=== PATIENT | female | born 1950 | race Caucasian/White ===

== ENCOUNTER 2017-10-23 09:48 | Inpatient (IN) | payer MEDICARE, MEDICAID ==
[~2017-10-23] VITALS: Ht 144.8 cm; Wt 70.0 kg
[~2017-10-23 09:48] MED LIST: ALBU18HF2 IH; ATOR40TA PO; BECL8.7A5 IH; FENO160T4 PO; FURO40TA4 PO; LORA10TA7 PO; NAPR500T6 PO; NITR0.4T51 SL; POTA20TA19 PO; PRED10TA PO; ZES10T PO; ZOL50T PO
[2017-10-23] MEDS ORDERED: methylPREDNISolone sod succ 125mg/2ml vial IV ONE (10:40)
[2017-10-23] MEDS ORDERED: ipratropium/albuterol 3ml nebule NEB ONE (10:40)
[2017-10-23 11:01] LABS: BASOPHILS % (AUTO) 0.4 % (0-1); EOSINOPHILS # (AUTO) 0.1 X10'3 (0-0.9); EOSINOPHILS % (AUTO) 1.4 % (0-6); HEMATOCRIT 39.5 % (35.0-45.0); HEMOGLOBIN 13.3 g/dl (12.0-16.0); LYMPHOCYTES # (AUTO) 2.3 X10'3 (1.1-4.8); LYMPHOCYTES % (AUTO) 35.2 % (21-51); MEAN CORPUSCULAR HEMOGLOBIN 34.8 PG (27.0-31.0); MEAN CORPUSCULAR HGB CONC 33.6 % (33.0-36.5); MEAN CORPUSCULAR VOLUME 103.6 FL (78-98); MEAN PLATELET VOLUME 7.8 FL (7.4-10.4); MONOCYTES # (AUTO) 0.6 X10'3 (0-0.9); MONOCYTES % (AUTO) 8.4 % (2-12); NEUTROPHILS # (AUTO) 3.6 X10'3 (1.8-7.7); NEUTROPHILS % (AUTO) 54.6 % (42-75); PLATELET COUNT 264 X10'3 (140-440); RED BLOOD COUNT 3.81 X10'6 (4.20-5.60); RED CELL DISTRIBUTION WIDTH 15.1 % (11.5-14.5); WHITE BLOOD COUNT 6.7 X10'3 (4.5-11.0)
[2017-10-23 11:19] LABS: ALANINE AMINOTRANSFERASE 26 U/L (12-78); ALBUMIN 3.7 G/DL (3.4-5.0); ALBUMIN/GLOBULIN RATIO 0.9 (1.1-1.5); ALKALINE PHOSPHATASE 71 IU/L (46-116); ANION GAP 10 (8-16); ASPARTATE AMINO TRANSFERASE 27 U/L (10-37); BILIRUBIN,TOTAL 0.7 MG/DL (0.1-1.0); BLOOD UREA NITROGEN 26 MG/DL (7-18); BUN/CREATININE RATIO 19.4 (6.6-38.0); CALCIUM 9.3 MG/DL (8.5-10.1); CHLORIDE 106 MMOL/L (99-107); CREATININE 1.34 MG/DL (0.40-0.90); GLUCOSE 108 MG/DL (70-104); SODIUM 145 MMOL/L (135-145); TOTAL PROTEIN 7.9 G/DL (6.4-8.2); eGFR 39 ML/MIN
[2017-10-23] MEDS ORDERED: potassium Cl oral solution 20 MEQ/15 ML PO ONE (11:25)
[2017-10-23 11:26] LABS: ABG BASE EXCESS 1.7 mmol/L (-2.0-3.0); ABG HCO3 25.4 mmol/L (22.0-26.0); ABG OXYGEN SATURATION 89.5 % (95-98); ABG PCO2 (T) 37.1 mmHg (32.0-45.0); ABG PH (T) 7.453 (7.350-7.450); ABG PO2 (T) 54.5 mmHg (83-108); ALLEN'S TEST Positive; FCOHb 1.2 % (0.5-1.5); FMetHb 0.1 % (0.3-1.12); FO2Hb 88.3 % (94-100); TOTAL HEMOGLOBIN 14.1 G/dl (12.0-16.0)
[2017-10-23] MEDS ORDERED: aspirin 81mg tab.chew PO ONE (11:35)
[2017-10-23] MEDS ORDERED: mag hydrox/Alum hydrox/simeth 30ml oral suspension PO PRN (11:45)
[2017-10-23] MEDS ORDERED: ipratropium/albuterol 3ml nebule NEB PRN (11:45)
[2017-10-23] MEDS: K and/or MAG REPLACEMENT MC SCH (11:45)
[2017-10-23] MEDS ORDERED: magnesium hydroxide 30ml (MOM) UD suspension PO PRN (11:45)
[2017-10-23] MEDS ORDERED: magnesium 4gm in 100ml NS 100 ML IV PRN (11:45)
[2017-10-23] MEDS ORDERED: potassium Cl 20 mEq SR tablet PO PRN ×2 (11:45)
[2017-10-23] MEDS ORDERED: furosemide 10 MG/1 ML 10ml inj IV ONE (11:45)
[2017-10-23] MEDS ORDERED: ondansetron/PF 4mg/2ml inj IV PRN (11:45)
[2017-10-23] MEDS ORDERED: magnesium Cl slow-release 64mg tablet PO PRN (11:45)
[2017-10-23] MEDS ORDERED: acetaminophen 325mg tablet PO PRN (11:45)
[2017-10-23] MEDS ORDERED: furosemide 40mg/4ml inj IV SCH (11:45)
[2017-10-23] MEDS ORDERED: magnesium 2GM in 50ml NS 50 ML IV PRN (11:45)
[2017-10-23] MEDS ORDERED: potassium Cl 40MEQ/NS 500ml 500 ML IV PRN ×2 (11:45)
[2017-10-23 12:47] LABS: HEMOGLOBIN A1C 6.9 % (4.5-6.2)
[2017-10-23 18:30] VITALS: BP 144/68
[2017-10-23] MEDS ORDERED: nitroGLYCERIN 0.4mg SUBLingual tab SL PRN (18:40)
[2017-10-23] MEDS ORDERED: potassium Cl oral solution 20 MEQ/15 ML PO PRN ×2 (18:50→18:51)
[2017-10-23] MEDS ORDERED: CLON0.1T20 (19:04)
[2017-10-23] MEDS ORDERED: MONT10TA24 (19:04)
[2017-10-23] MEDS ORDERED: METO-395 (19:04)
[2017-10-23] MEDS: carVEDilol 3.125mg tablet PO SCH (19:21)
[2017-10-23] MEDS: methylPREDNISolone sod succ/PF 40mg inj. IV SCH (19:21)
[2017-10-23] MEDS: potassium Cl oral solution 20 MEQ/15 ML PO SCH (19:22)
[2017-10-23] MEDS: ipratropium/albuterol 3ml nebule NEB SCH ×2 (19:39→22:45)
[2017-10-23] MEDS ORDERED: temazepam 15mg capsule PO PRN (21:00)
[2017-10-23] MEDS ORDERED: non-formulary drug (Atorvastatin Calcium* (Lipitor*) 1 TAB) PO SCH (21:00)
[2017-10-23] MEDS: atorvastatin 20mg tablet PO SCH (21:04)
[2017-10-23 22:00] VITALS: BP 149/84
[2017-10-24 02:00] VITALS: BP 117/65
[2017-10-24] MEDS: methylPREDNISolone sod succ/PF 40mg inj. IV SCH ×4 (02:23→20:51)
[2017-10-24 05:49] LABS: BASOPHILS % (AUTO) 0.3 % (0-1); EOSINOPHILS % (AUTO) 0.8 % (0-6); HEMOGLOBIN 13.2 g/dl (12.0-16.0); LYMPHOCYTES # (AUTO) 0.7 X10'3 (1.1-4.8); LYMPHOCYTES % (AUTO) 10.3 % (21-51); MEAN CORPUSCULAR HEMOGLOBIN 34.9 PG (27.0-31.0); MEAN CORPUSCULAR HGB CONC 33.8 % (33.0-36.5); MEAN CORPUSCULAR VOLUME 103.5 FL (78-98); MEAN PLATELET VOLUME 7.9 FL (7.4-10.4); MONOCYTES # (AUTO) 0.2 X10'3 (0-0.9); MONOCYTES % (AUTO) 2.8 % (2-12); NEUTROPHILS # (AUTO) 5.5 X10'3 (1.8-7.7); NEUTROPHILS % (AUTO) 85.8 % (42-75); PLATELET COUNT 262 X10'3 (140-440); RED BLOOD COUNT 3.77 X10'6 (4.20-5.60); RED CELL DISTRIBUTION WIDTH 14.6 % (11.5-14.5); WHITE BLOOD COUNT 6.5 X10'3 (4.5-11.0)
[2017-10-24 06:30] VITALS: BP 132/76
[2017-10-24 06:30] LABS: ALANINE AMINOTRANSFERASE 29 U/L (12-78); ALBUMIN 3.5 G/DL (3.4-5.0); ALBUMIN/GLOBULIN RATIO 0.8 (1.1-1.5); ALKALINE PHOSPHATASE 71 IU/L (46-116); ANION GAP 9 (8-16); ASPARTATE AMINO TRANSFERASE 28 U/L (10-37); BILIRUBIN,TOTAL 0.5 MG/DL (0.1-1.0); BLOOD UREA NITROGEN 25 MG/DL (7-18); BUN/CREATININE RATIO 18.8 (6.6-38.0); CALCIUM 9.4 MG/DL (8.5-10.1); CHLORIDE 103 MMOL/L (99-107); CHOL/HDL RATIO 7.7 (0.00-4.99); CHOLESTEROL 199 MG/DL (0-200); CREATININE 1.33 MG/DL (0.40-0.90); GLUCOSE 171 MG/DL (70-104); HDL CHOLESTEROL 26 MG/DL (35-60); LDL CHOLESTEROL 138 MG/DL (50-100); MAGNESIUM 1.8 MG/DL (1.5-2.4); PHOSPHORUS 3.1 MG/DL (2.3-4.5); SODIUM 143 MMOL/L (135-145); TOTAL CARBON DIOXIDE 30.6 MMOL/L (24-32); TOTAL PROTEIN 7.7 G/DL (6.4-8.2); TRIGLYCERIDES 200 MG/DL (20-135); eGFR 40 ML/MIN
[2017-10-24 06:39] LABS: POTASSIUM 4.1 MMOL/L (3.5-5.1)
[2017-10-24] MEDS: ipratropium/albuterol 3ml nebule NEB SCH ×5 (06:46→23:00)
[2017-10-24] MEDS: K and/or MAG REPLACEMENT MC SCH (07:50)
[2017-10-24] MEDS: furosemide 40mg/4ml inj IV SCH ×2 (08:00→20:49)
[2017-10-24] MEDS ORDERED: FENOFIBRATE 160 MG PO SCH (08:00)
[2017-10-24] MEDS: potassium Cl oral solution 20 MEQ/15 ML PO SCH ×2 (08:00→20:00)
[2017-10-24] MEDS: lisinopril 10 MG tablet PO SCH (08:00)
[2017-10-24] MEDS: carVEDilol 3.125mg tablet PO SCH ×2 (08:01→20:00)
[2017-10-24] MEDS: sertraline 50mg tablet PO SCH (08:02)
[2017-10-24] MEDS: fenofibrate 145mg tablet PO SCH (08:02)
[2017-10-24] MEDS: enoxaparin 40mg/0.4ml syringe SUBCUT SCH (08:03)
[2017-10-24 11:00] VITALS: BP 122/59
[2017-10-24 15:00] VITALS: BP 116/63
[2017-10-24] MEDS ORDERED: HYDROcodone/acetaminophen 5mg/325mg tablet PO PRN (16:40)
[2017-10-24 19:00] VITALS: BP 121/57
[2017-10-24] MEDS: atorvastatin 20mg tablet PO SCH (20:50)
[2017-10-24] MEDS ORDERED: dextrose ORAL solution 15 GM/59 ML bottle PO PRN ×2 (22:25)
[2017-10-24] MEDS ORDERED: glucagon, human recombinant 1mg kit SUBCUT PRN (22:25)
[2017-10-24] MEDS ORDERED: dextrose 50%-water 50ml dispensing syringe IV PRN ×2 (22:25)
[2017-10-24] MEDS ORDERED: MESSAGE TO PHARMACY PO ONE (22:25)
[2017-10-24] MEDS: insulin glargine (Lantus) pen - multi-dose SQ SCH (22:31)
[2017-10-24 23:00] VITALS: BP 123/72
[2017-10-25] MEDS: methylPREDNISolone sod succ/PF 40mg inj. IV SCH ×4 (02:35→22:08)
[2017-10-25 03:00] VITALS: BP 132/78
[2017-10-25 05:36] LABS: BASOPHILS % (AUTO) 0.1 % (0-1); EOSINOPHILS # (AUTO) 0.1 X10'3 (0-0.9); EOSINOPHILS % (AUTO) 1.4 % (0-6); HEMATOCRIT 39.9 % (35.0-45.0); HEMOGLOBIN 13.7 g/dl (12.0-16.0); LYMPHOCYTES # (AUTO) 0.9 X10'3 (1.1-4.8); LYMPHOCYTES % (AUTO) 9.7 % (21-51); MEAN CORPUSCULAR HEMOGLOBIN 35.1 PG (27.0-31.0); MEAN CORPUSCULAR HGB CONC 34.3 % (33.0-36.5); MEAN CORPUSCULAR VOLUME 102.2 FL (78-98); MEAN PLATELET VOLUME 7.9 FL (7.4-10.4); MONOCYTES # (AUTO) 0.2 X10'3 (0-0.9); MONOCYTES % (AUTO) 2.5 % (2-12); NEUTROPHILS # (AUTO) 8.3 X10'3 (1.8-7.7); NEUTROPHILS % (AUTO) 86.3 % (42-75); PLATELET COUNT 279 X10'3 (140-440); RED BLOOD COUNT 3.91 X10'6 (4.20-5.60); WHITE BLOOD COUNT 9.6 X10'3 (4.5-11.0)
[2017-10-25 06:15] LABS: ALANINE AMINOTRANSFERASE 25 U/L (12-78); ALBUMIN 3.6 G/DL (3.4-5.0); ALBUMIN/GLOBULIN RATIO 0.9 (1.1-1.5); ALKALINE PHOSPHATASE 64 IU/L (46-116); ANION GAP 13 (8-16); ASPARTATE AMINO TRANSFERASE 18 U/L (10-37); BILIRUBIN,TOTAL 0.6 MG/DL (0.1-1.0); BLOOD UREA NITROGEN 38 MG/DL (7-18); BUN/CREATININE RATIO 24.7 (6.6-38.0); CALCIUM 9.6 MG/DL (8.5-10.1); CHLORIDE 103 MMOL/L (99-107); CREATININE 1.54 MG/DL (0.40-0.90); GLUCOSE 161 MG/DL (70-104); MAGNESIUM 1.8 MG/DL (1.5-2.4); PHOSPHORUS 4.9 MG/DL (2.3-4.5); POTASSIUM 3.7 MMOL/L (3.5-5.1); SODIUM 145 MMOL/L (135-145); TOTAL CARBON DIOXIDE 28.9 MMOL/L (24-32); TOTAL PROTEIN 7.8 G/DL (6.4-8.2); eGFR 34 ML/MIN
[2017-10-25] MEDS: ipratropium/albuterol 3ml nebule NEB SCH ×5 (06:40→23:01)
[2017-10-25 06:46] VITALS: BP 140/87
[2017-10-25] MEDS: potassium Cl oral solution 20 MEQ/15 ML PO SCH ×2 (08:00→20:00)
[2017-10-25] MEDS: K and/or MAG REPLACEMENT MC SCH (08:00)
[2017-10-25] MEDS: sertraline 50mg tablet PO SCH (09:09)
[2017-10-25] MEDS: fenofibrate 145mg tablet PO SCH (09:09)
[2017-10-25] MEDS: enoxaparin 40mg/0.4ml syringe SUBCUT SCH (09:09)
[2017-10-25] MEDS: lisinopril 10 MG tablet PO SCH (09:10)
[2017-10-25] MEDS: carVEDilol 3.125mg tablet PO SCH ×2 (09:10→22:01)
[2017-10-25] MEDS: furosemide 40mg/4ml inj IV SCH ×2 (09:10→22:03)
[2017-10-25 11:00] VITALS: BP 129/72
[2017-10-25] MEDS: insulin Lispro (HumaLOG) vial - multi-dose SQ SCH (13:15)
[2017-10-25 15:00] VITALS: BP 121/78
[2017-10-25 19:00] VITALS: BP 122/77
[2017-10-25] MEDS: atorvastatin 20mg tablet PO SCH (21:56)
[2017-10-25] MEDS: insulin glargine (Lantus) pen - multi-dose SQ SCH (22:00)
[2017-10-25 23:00] VITALS: BP 134/77
[2017-10-26] MEDS: methylPREDNISolone sod succ/PF 40mg inj. IV SCH ×3 (02:21→13:23)
[2017-10-26 03:00] VITALS: BP 122/78
[2017-10-26 06:00] VITALS: BP 126/69
[2017-10-26 06:08] LABS: BASOPHILS % (AUTO) 0 % (0-1); EOSINOPHILS # (AUTO) 0.1 X10'3 (0-0.9); EOSINOPHILS % (AUTO) 1.5 % (0-6); HEMATOCRIT 40.7 % (35.0-45.0); HEMOGLOBIN 13.6 g/dl (12.0-16.0); LYMPHOCYTES # (AUTO) 0.9 X10'3 (1.1-4.8); LYMPHOCYTES % (AUTO) 11.3 % (21-51); MEAN CORPUSCULAR HEMOGLOBIN 34.5 PG (27.0-31.0); MEAN CORPUSCULAR HGB CONC 33.4 % (33.0-36.5); MEAN CORPUSCULAR VOLUME 103.3 FL (78-98); MEAN PLATELET VOLUME 7.9 FL (7.4-10.4); MONOCYTES # (AUTO) 0.2 X10'3 (0-0.9); MONOCYTES % (AUTO) 2.8 % (2-12); NEUTROPHILS # (AUTO) 6.6 X10'3 (1.8-7.7); NEUTROPHILS % (AUTO) 84.4 % (42-75); PLATELET COUNT 299 X10'3 (140-440); RED BLOOD COUNT 3.94 X10'6 (4.20-5.60); RED CELL DISTRIBUTION WIDTH 15.5 % (11.5-14.5); WHITE BLOOD COUNT 7.8 X10'3 (4.5-11.0)
[2017-10-26 07:03] LABS: ALANINE AMINOTRANSFERASE 27 U/L (12-78); ALBUMIN 3.6 G/DL (3.4-5.0); ALBUMIN/GLOBULIN RATIO 0.9 (1.1-1.5); ALKALINE PHOSPHATASE 62 IU/L (46-116); ANION GAP 8 (8-16); ASPARTATE AMINO TRANSFERASE 20 U/L (10-37); BILIRUBIN,TOTAL 0.5 MG/DL (0.1-1.0); BLOOD UREA NITROGEN 45 MG/DL (7-18); BUN/CREATININE RATIO 27.3 (6.6-38.0); CALCIUM 9.5 MG/DL (8.5-10.1); CHLORIDE 103 MMOL/L (99-107); CREATININE 1.65 MG/DL (0.40-0.90); GLUCOSE 169 MG/DL (70-104); PHOSPHORUS 5.8 MG/DL (2.3-4.5); POTASSIUM 3.7 MMOL/L (3.5-5.1); SODIUM 147 MMOL/L (135-145); TOTAL CARBON DIOXIDE 36.1 MMOL/L (24-32); TOTAL PROTEIN 7.6 G/DL (6.4-8.2); eGFR 31 ML/MIN
[2017-10-26] MEDS: ipratropium/albuterol 3ml nebule NEB SCH ×5 (07:15→23:02)
[2017-10-26] MEDS: potassium Cl oral solution 20 MEQ/15 ML PO SCH ×2 (08:00→20:00)
[2017-10-26] MEDS: carVEDilol 3.125mg tablet PO SCH ×2 (08:23→20:44)
[2017-10-26] MEDS: lisinopril 10 MG tablet PO SCH (08:23)
[2017-10-26] MEDS: furosemide 40mg/4ml inj IV SCH ×2 (08:24→20:44)
[2017-10-26] MEDS: enoxaparin 30mg/0.3ml syringe SUBCUT SCH (08:24)
[2017-10-26] MEDS: sertraline 50mg tablet PO SCH (08:24)
[2017-10-26] MEDS: fenofibrate 145mg tablet PO SCH (08:30)
[2017-10-26] MEDS: insulin Lispro (HumaLOG) vial - multi-dose SQ SCH ×2 (08:33→13:28)
[2017-10-26 11:00] VITALS: BP 122/83
[2017-10-26 15:00] VITALS: BP 131/71
[2017-10-26 19:00] VITALS: BP 136/62
[2017-10-26] MEDS: atorvastatin 20mg tablet PO SCH (20:44)
[2017-10-26] MEDS: insulin glargine (Lantus) pen - multi-dose SQ SCH (20:53)
[2017-10-26 23:00] VITALS: BP 121/64
[2017-10-27 03:00] VITALS: BP 136/84
[2017-10-27 05:52] LABS: BASOPHILS % (AUTO) 0.1 % (0-1); EOSINOPHILS % (AUTO) 0 % (0-6); HEMATOCRIT 44.2 % (35.0-45.0); HEMOGLOBIN 14.8 g/dl (12.0-16.0); LYMPHOCYTES # (AUTO) 1.6 X10'3 (1.1-4.8); LYMPHOCYTES % (AUTO) 15.6 % (21-51); MEAN CORPUSCULAR HEMOGLOBIN 34.5 PG (27.0-31.0); MEAN CORPUSCULAR HGB CONC 33.5 % (33.0-36.5); MEAN CORPUSCULAR VOLUME 103.1 FL (78-98); MEAN PLATELET VOLUME 7.8 FL (7.4-10.4); MONOCYTES # (AUTO) 0.8 X10'3 (0-0.9); MONOCYTES % (AUTO) 8.3 % (2-12); NEUTROPHILS # (AUTO) 7.7 X10'3 (1.8-7.7); PLATELET COUNT 307 X10'3 (140-440); RED BLOOD COUNT 4.29 X10'6 (4.20-5.60); RED CELL DISTRIBUTION WIDTH 15.4 % (11.5-14.5); WHITE BLOOD COUNT 10.1 X10'3 (4.5-11.0)
[2017-10-27 06:00] VITALS: BP 136/74
[2017-10-27 06:27] LABS: ALANINE AMINOTRANSFERASE 29 U/L (12-78); ALBUMIN 3.7 G/DL (3.4-5.0); ALBUMIN/GLOBULIN RATIO 0.9 (1.1-1.5); ALKALINE PHOSPHATASE 58 IU/L (46-116); ANION GAP 9 (8-16); ASPARTATE AMINO TRANSFERASE 23 U/L (10-37); BILIRUBIN,TOTAL 0.6 MG/DL (0.1-1.0); BLOOD UREA NITROGEN 56 MG/DL (7-18); BUN/CREATININE RATIO 36.1 (6.6-38.0); CALCIUM 9.6 MG/DL (8.5-10.1); CHLORIDE 103 MMOL/L (99-107); CREATININE 1.55 MG/DL (0.40-0.90); GLUCOSE 130 MG/DL (70-104); MAGNESIUM 2.1 MG/DL (1.5-2.4); PHOSPHORUS 4.8 MG/DL (2.3-4.5); POTASSIUM 3.4 MMOL/L (3.5-5.1); SODIUM 147 MMOL/L (135-145); TOTAL CARBON DIOXIDE 35.1 MMOL/L (24-32); TOTAL PROTEIN 7.7 G/DL (6.4-8.2); eGFR 33 ML/MIN
[2017-10-27] MEDS: potassium Cl oral solution 20 MEQ/15 ML PO SCH ×2 (08:00→20:00)
[2017-10-27] MEDS: enoxaparin 30mg/0.3ml syringe SUBCUT SCH (08:00)
[2017-10-27] MEDS: K and/or MAG REPLACEMENT MC SCH (08:00)
[2017-10-27] MEDS: ipratropium/albuterol 3ml nebule NEB SCH ×5 (08:09→23:14)
[2017-10-27] MEDS: fenofibrate 145mg tablet PO SCH (08:30)
[2017-10-27] MEDS: furosemide 40mg/4ml inj IV SCH (08:30)
[2017-10-27] MEDS: carVEDilol 3.125mg tablet PO SCH ×2 (08:35→20:53)
[2017-10-27] MEDS: prednisone 10mg tablet PO SCH (08:36)
[2017-10-27] MEDS: lisinopril 10 MG tablet PO SCH (08:36)
[2017-10-27] MEDS: sertraline 50mg tablet PO SCH (08:36)
[2017-10-27] MEDS: insulin Lispro (HumaLOG) vial - multi-dose SQ SCH ×2 (08:42→13:31)
[2017-10-27 11:00] VITALS: BP 98/53
[2017-10-27 15:00] VITALS: BP 109/65
[2017-10-27 19:00] VITALS: BP 132/85
[2017-10-27] MEDS: atorvastatin 20mg tablet PO SCH (20:53)
[2017-10-27] MEDS: insulin glargine (Lantus) pen - multi-dose SQ SCH (21:00)
[2017-10-27 23:00] VITALS: BP 120/83
[2017-10-28 06:00] VITALS: BP_SYST 102; BP_SYST 119; BP_DIAS 52; BP_DIAS 65
[2017-10-28 07:15] LABS: BASOPHILS % (AUTO) 0.1 % (0-1); EOSINOPHILS # (AUTO) 0.2 X10'3 (0-0.9); EOSINOPHILS % (AUTO) 1.5 % (0-6); HEMATOCRIT 45.3 % (35.0-45.0); HEMOGLOBIN 15.1 g/dl (12.0-16.0); LYMPHOCYTES # (AUTO) 2.8 X10'3 (1.1-4.8); LYMPHOCYTES % (AUTO) 27.8 % (21-51); MEAN CORPUSCULAR HEMOGLOBIN 34.8 PG (27.0-31.0); MEAN CORPUSCULAR HGB CONC 33.4 % (33.0-36.5); MEAN CORPUSCULAR VOLUME 104.5 FL (78-98); MEAN PLATELET VOLUME 7.8 FL (7.4-10.4); MONOCYTES # (AUTO) 0.9 X10'3 (0-0.9); MONOCYTES % (AUTO) 8.9 % (2-12); NEUTROPHILS # (AUTO) 6.2 X10'3 (1.8-7.7); NEUTROPHILS % (AUTO) 61.7 % (42-75); PLATELET COUNT 295 X10'3 (140-440); RED BLOOD COUNT 4.34 X10'6 (4.20-5.60); RED CELL DISTRIBUTION WIDTH 14.7 % (11.5-14.5); WHITE BLOOD COUNT 10.1 X10'3 (4.5-11.0)
[2017-10-28 07:35] LABS: ALANINE AMINOTRANSFERASE 38 U/L (12-78); ALBUMIN 3.4 G/DL (3.4-5.0); ALBUMIN/GLOBULIN RATIO 0.9 (1.1-1.5); ALKALINE PHOSPHATASE 60 IU/L (46-116); ANION GAP 6 (8-16); ASPARTATE AMINO TRANSFERASE 29 U/L (10-37); BILIRUBIN,TOTAL 0.6 MG/DL (0.1-1.0); BLOOD UREA NITROGEN 54 MG/DL (7-18); BUN/CREATININE RATIO 42.2 (6.6-38.0); CALCIUM 9.2 MG/DL (8.5-10.1); CHLORIDE 104 MMOL/L (99-107); CREATININE 1.28 MG/DL (0.40-0.90); GLUCOSE 80 MG/DL (70-104); MAGNESIUM 2.1 MG/DL (1.5-2.4); PHOSPHORUS 3.7 MG/DL (2.3-4.5); POTASSIUM 3.1 MMOL/L (3.5-5.1); SODIUM 148 MMOL/L (135-145); TOTAL CARBON DIOXIDE 37.7 MMOL/L (24-32); TOTAL PROTEIN 7.3 G/DL (6.4-8.2); eGFR 41 ML/MIN
[2017-10-28] MEDS: lisinopril 10 MG tablet PO SCH (07:46)
[2017-10-28] MEDS: prednisone 10mg tablet PO SCH (07:46)
[2017-10-28] MEDS: carVEDilol 3.125mg tablet PO SCH ×2 (07:46→20:31)
[2017-10-28] MEDS: furosemide 40mg tablet PO SCH (07:46)
[2017-10-28] MEDS: sertraline 50mg tablet PO SCH (07:47)
[2017-10-28] MEDS: fenofibrate 145mg tablet PO SCH (07:47)
[2017-10-28] MEDS: enoxaparin 30mg/0.3ml syringe SUBCUT SCH (07:48)
[2017-10-28] MEDS: potassium Cl oral solution 20 MEQ/15 ML PO SCH ×2 (07:51→20:00)
[2017-10-28] MEDS: K and/or MAG REPLACEMENT MC SCH (07:55)
[2017-10-28] MEDS: insulin Lispro (HumaLOG) vial - multi-dose SQ SCH ×2 (09:10→13:28)
[2017-10-28] MEDS: ipratropium/albuterol 3ml nebule NEB SCH ×5 (09:31→23:27)
[2017-10-28 15:00] VITALS: BP 107/59
[2017-10-28 19:00] VITALS: BP 107/59
[2017-10-28] MEDS: atorvastatin 20mg tablet PO SCH (20:31)
[2017-10-28] MEDS: insulin glargine (Lantus) pen - multi-dose SQ SCH (21:30)
[2017-10-29 03:00] VITALS: BP 118/70
[2017-10-29 06:00] VITALS: BP 102/73
[2017-10-29 06:14] LABS: ALBUMIN 3.3 G/DL (3.4-5.0); ANION GAP 5 (8-16); BLOOD UREA NITROGEN 48 MG/DL (7-18); BUN/CREATININE RATIO 38.1 (6.6-38.0); CALCIUM 9.3 MG/DL (8.5-10.1); CHLORIDE 106 MMOL/L (99-107); CREATININE 1.26 MG/DL (0.40-0.90); GLUCOSE 78 MG/DL (70-104); MAGNESIUM 2.1 MG/DL (1.5-2.4); POTASSIUM 3.4 MMOL/L (3.5-5.1); SODIUM 150 MMOL/L (135-145); TOTAL CARBON DIOXIDE 38.7 MMOL/L (24-32); eGFR 42 ML/MIN
[2017-10-29] MEDS: ipratropium/albuterol 3ml nebule NEB SCH ×5 (07:11→23:27)
[2017-10-29] MEDS: potassium Cl oral solution 20 MEQ/15 ML PO SCH ×2 (08:00→20:48)
[2017-10-29] MEDS: K and/or MAG REPLACEMENT MC SCH (08:00)
[2017-10-29] MEDS: fenofibrate 145mg tablet PO SCH ×2 (09:30→09:42)
[2017-10-29] MEDS: enoxaparin 30mg/0.3ml syringe SUBCUT SCH (09:30)
[2017-10-29] MEDS: sertraline 50mg tablet PO SCH (09:30)
[2017-10-29] MEDS: prednisone 10mg tablet PO SCH (09:31)
[2017-10-29] MEDS: furosemide 40mg tablet PO SCH (09:31)
[2017-10-29] MEDS: carVEDilol 3.125mg tablet PO SCH ×2 (09:31→19:19)
[2017-10-29] MEDS: lisinopril 10 MG tablet PO SCH (09:31)
[2017-10-29 11:00] VITALS: BP 113/54
[2017-10-29 15:00] VITALS: BP 134/71
[2017-10-29 19:00] VITALS: BP 123/73
[2017-10-29] MEDS: insulin Lispro (HumaLOG) vial - multi-dose SQ SCH (19:19)
[2017-10-29] MEDS: atorvastatin 20mg tablet PO SCH (20:48)
[2017-10-29] MEDS: insulin glargine (Lantus) pen - multi-dose SQ SCH (21:09)
[2017-10-29 23:00] VITALS: BP 104/49
[2017-10-30 03:00] VITALS: BP 125/73
[2017-10-30 06:00] VITALS: BP 116/52
[2017-10-30] MEDS: ipratropium/albuterol 3ml nebule NEB SCH ×2 (06:58→11:03)
[2017-10-30] MEDS: carVEDilol 3.125mg tablet PO SCH (07:34)
[2017-10-30] MEDS: sertraline 50mg tablet PO SCH (07:35)
[2017-10-30] MEDS: lisinopril 10 MG tablet PO SCH (07:36)
[2017-10-30] MEDS: furosemide 40mg tablet PO SCH (07:37)
[2017-10-30] MEDS: potassium Cl oral solution 20 MEQ/15 ML PO SCH (07:41)
[2017-10-30] MEDS: enoxaparin 30mg/0.3ml syringe SUBCUT SCH (07:42)
[2017-10-30] MEDS: fenofibrate 145mg tablet PO SCH (07:45)
[2017-10-30] MEDS: K and/or MAG REPLACEMENT MC SCH (08:00)
[2017-10-30] MEDS ORDERED: prednisone 10mg tablet PO SCH (08:30)
[2017-10-30 10:32] LABS: BASOPHILS % (AUTO) 0.1 % (0-1); EOSINOPHILS # (AUTO) 0.2 X10'3 (0-0.9); EOSINOPHILS % (AUTO) 1.6 % (0-6); HEMATOCRIT 46.9 % (35.0-45.0); HEMOGLOBIN 15.8 g/dl (12.0-16.0); LYMPHOCYTES # (AUTO) 1.9 X10'3 (1.1-4.8); LYMPHOCYTES % (AUTO) 16.2 % (21-51); MEAN CORPUSCULAR HEMOGLOBIN 34.7 PG (27.0-31.0); MEAN CORPUSCULAR HGB CONC 33.7 % (33.0-36.5); MEAN CORPUSCULAR VOLUME 102.8 FL (78-98); MEAN PLATELET VOLUME 7.8 FL (7.4-10.4); MONOCYTES # (AUTO) 0.8 X10'3 (0-0.9); MONOCYTES % (AUTO) 7.1 % (2-12); NEUTROPHILS # (AUTO) 8.7 X10'3 (1.8-7.7); PLATELET COUNT 291 X10'3 (140-440); RED BLOOD COUNT 4.57 X10'6 (4.20-5.60); RED CELL DISTRIBUTION WIDTH 14.6 % (11.5-14.5); WHITE BLOOD COUNT 11.5 X10'3 (4.5-11.0)
[2017-10-30 10:42] LABS: ALBUMIN 3.5 G/DL (3.4-5.0); ANION GAP 7 (8-16); BLOOD UREA NITROGEN 38 MG/DL (7-18); BUN/CREATININE RATIO 32.8 (6.6-38.0); CALCIUM 9.3 MG/DL (8.5-10.1); CHLORIDE 104 MMOL/L (99-107); CREATININE 1.16 MG/DL (0.40-0.90); GLUCOSE 111 MG/DL (70-104); POTASSIUM 4.6 MMOL/L (3.5-5.1); SODIUM 145 MMOL/L (135-145); TOTAL CARBON DIOXIDE 33.7 MMOL/L (24-32); eGFR 46 ML/MIN
[2017-10-30 11:00] VITALS: BP 98/62
[2017-10-30] MEDS ORDERED: BECL8.7A7 INH (12:29)
[2017-10-30] MEDS ORDERED: ALBU18HF2 IH (12:29)
[2017-10-30] MEDS ORDERED: METF500T4 PO (12:29)
[2017-10-30] MEDS ORDERED: PRE5T PO (14:02)
[2017-10-30 14:47] VITALS: BP 102/42
== END 2017-10-30 14:55 | disposition home or self-care (01) | DRG 280 ==
LOC: ER 09:48 → ED HOLD 11:42 → EDBEDREQ 16:48 → PCU 3S 17:32
PROVIDERS: ADMIT Family Medicine; ATTEND Internal Medicine
DX: I13.0 Hypertensive heart and chronic kidney disease with heart failure and stage 1 through stage 4 chronic kidney disease, or unspecified chronic kidney disease (principal); I50.23 Acute on chronic systolic (congestive) heart failure; I21.A1 Myocardial infarction type 2; J96.21 Acute and chronic respiratory failure with hypoxia; J44.1 Chronic obstructive pulmonary disease with (acute) exacerbation; J94.2 Hemothorax; N17.9 Acute kidney failure, unspecified; F32.9 Major depressive disorder, single episode, unspecified; I25.10 Atherosclerotic heart disease of native coronary artery without angina pectoris; B95.62 Methicillin resistant Staphylococcus aureus infection as the cause of diseases classified elsewhere; E78.5 Hyperlipidemia, unspecified; Z99.81 Dependence on supplemental oxygen; E03.9 Hypothyroidism, unspecified; E11.22 Type 2 diabetes mellitus with diabetic chronic kidney disease; E66.01 Morbid (severe) obesity due to excess calories; E78.00 Pure hypercholesterolemia, unspecified; E87.6 Hypokalemia; G47.30 Sleep apnea, unspecified; I44.7 Left bundle-branch block, unspecified; N18.3 Chronic kidney disease, stage 3 (moderate); Z59.0 Homelessness; Z79.51 Long term (current) use of inhaled steroids; Z79.84 Long term (current) use of oral hypoglycemic drugs; Z79.899 Other long term (current) drug therapy; Z88.6 Allergy status to analgesic agent; Z88.5 Allergy status to narcotic agent; Z88.0 Allergy status to penicillin; Z68.33 Body mass index [BMI] 33.0-33.9, adult
CPT/HCPCS: 36415; 36600; 71045; 80048; 80053; 80061; 82803; 82948; 83036; 83735; 83880; 84100; 84443; 84484; 85018; 85025; 87070; 93005; 93306; 93308; 94640; 94760; 96374; 97116; 97162; 97530; 99285; J1650; J1815; J1940; J2920; J2930; J7512

== ENCOUNTER 2018-01-15 11:47 | Emergency (ER) | payer MEDICARE, MEDICAID ==
[~2018-01-15 11:47] MED LIST changes: -BECL8.7A5 IH; +BECL8.7A7 INH; +CLON0.1T20; -FENO160T4 PO; +METO-395; -NAPR500T6 PO; +PRE5T PO; -PRED10TA PO; -ZOL50T PO
[2018-01-15 12:12] LABS: BASOPHILS % (AUTO) 0.4 % (0-1); EOSINOPHILS # (AUTO) 0.1 X10'3 (0-0.9); EOSINOPHILS % (AUTO) 1.2 % (0-6); HEMATOCRIT 41.8 % (35.0-45.0); HEMOGLOBIN 14.2 g/dl (12.0-16.0); LYMPHOCYTES # (AUTO) 1.9 X10'3 (1.1-4.8); LYMPHOCYTES % (AUTO) 27.7 % (21-51); MEAN CORPUSCULAR HEMOGLOBIN 34.5 PG (27.0-31.0); MEAN CORPUSCULAR HGB CONC 33.9 % (33.0-36.5); MEAN PLATELET VOLUME 7.4 FL (7.4-10.4); MONOCYTES # (AUTO) 0.4 X10'3 (0-0.9); MONOCYTES % (AUTO) 5.2 % (2-12); NEUTROPHILS # (AUTO) 4.4 X10'3 (1.8-7.7); NEUTROPHILS % (AUTO) 65.5 % (42-75); PLATELET COUNT 287 X10'3 (140-440); RED CELL DISTRIBUTION WIDTH 15.3 % (11.5-14.5); WHITE BLOOD COUNT 6.8 X10'3 (4.5-11.0)
[2018-01-15 12:22] LABS: INR 1.1 INR; PARTIAL THROMBOPLASTIN TIME 26 SECONDS (22-32)
[2018-01-15 12:27] LABS: ALANINE AMINOTRANSFERASE 15 U/L (12-78); ALBUMIN 3.7 G/DL (3.4-5.0); ALBUMIN/GLOBULIN RATIO 0.9 (1.1-1.5); ALKALINE PHOSPHATASE 96 IU/L (46-116); ANION GAP 12 (8-16); ASPARTATE AMINO TRANSFERASE 19 U/L (10-37); BILIRUBIN,TOTAL 0.6 MG/DL (0.1-1.0); BLOOD UREA NITROGEN 22 MG/DL (7-18); BUN/CREATININE RATIO 14.5 (6.6-38.0); CALCIUM 9.2 MG/DL (8.5-10.1); CHLORIDE 104 MMOL/L (99-107); CREATININE 1.52 MG/DL (0.40-0.90); GLUCOSE 188 MG/DL (70-104); POTASSIUM 3.2 MMOL/L (3.5-5.1); SODIUM 144 MMOL/L (135-145); TOTAL CARBON DIOXIDE 27.7 MMOL/L (24-32); eGFR 34 ML/MIN
[2018-01-15] MEDS ORDERED: methylPREDNISolone sod succ 125mg/2ml vial IV ONE (15:05)
[2018-01-15] MEDS ORDERED: ipratropium/albuterol 3ml nebule NEB ONE (15:05)
[2018-01-15] MEDS ORDERED: LEVO750T21 PO (16:19)
[2018-01-15] MEDS ORDERED: PRED20TA PO (16:19)
[2018-01-15] MEDS ORDERED: furosemide 10 MG/1 ML 10ml inj IV ONE (16:25)
[2018-01-15 16:43] VITALS: BP 107/81
== END 2018-01-15 16:51 | disposition home or self-care (01) ==
LOC: ER 11:49
DX: I11.0 Hypertensive heart disease with heart failure (principal); I50.9 Heart failure, unspecified; J40 Bronchitis, not specified as acute or chronic; I27.20 Pulmonary hypertension, unspecified; E78.00 Pure hypercholesterolemia, unspecified; J44.9 Chronic obstructive pulmonary disease, unspecified; E11.9 Type 2 diabetes mellitus without complications; Z88.0 Allergy status to penicillin; Z88.5 Allergy status to narcotic agent; Z79.899 Other long term (current) drug therapy
CPT/HCPCS: 36415; 71045; 80053; 83880; 84484; 85025; 85610; 85730; 93005; 94640; 94760; 96374; 99285; J1940; J2930